=== PATIENT | female | born 1990 | race Caucasian/White ===

== ENCOUNTER 2018-04-23 13:31 | Inpatient (IN) ==
[2018-04-23] MEDS ORDERED: *HR* Nalbuphine 10 MG/ML AMPUL IVP PRN (14:17)
[2018-04-23] MEDS ORDERED: Lidocaine 1% 20 ML MDV INFILT PRN (14:17)
[2018-04-23] MEDS ORDERED: Ondansetron 4 MG/2 ML VIAL IVP PRN (14:17)
[2018-04-23] MEDS ORDERED: Metoclopramide 10 MG/2 ML VIAL IVP PRN (14:17)
[2018-04-23] MEDS ORDERED: Famotidine 20 MG/2 ML VIAL IVP PRN (14:17)
[2018-04-23] MEDS ORDERED: Naloxone 0.4 MG/ML INJ IVP PRN (14:17)
[2018-04-23] MEDS ORDERED: Ringers Solution, Lactated 1,000 ML IVC SCH (14:30)
--- NOTE | 2018-04-23 14:35 | OB/GYN History & Physical ---
Date of Encounter: 04/23/18 Time of Encounter: 14:30 Assessment and Plan (1) 40 weeks gestation of Current visit: Yes Status: Acute (2) Spontaneous onset of labor Current visit: Yes Status: Acute Admit for expectant managment. Epidural when requested. Anticipate . (3) Asthma affecting in third trimester Current visit: Yes Status: Acute (4) Depression affecting in third trimester, antepartum Current visit: Yes Status: Acute History of Present Illness Chief complaint: contractions HPI: Ms. Champion is a 27 year old female presenting at 40w3d with c/o contractions. She states the contractions started about 0330 this am and were about every 7 minutes until she was on her way to her appt today. She reports they are stronger and closer now than they have been. No other complaints. This has been uncomplicated. She is on Zoloft for depression since she was a teenager. She also has asthma for which she uses her albuterol inhaler about once per week. Blood type O positive Rubella immune Serologies negative GBS negative Past Med Surg Social Fam HX - Past Medical History Source: patient Medical history: asthma - Past Surgical History Surgical History: non-contributory - Social History Smoking Status: Never smoker Smokeless Tobacco Status: No Alcohol use: none Drug use: none Occupational status: employed Current living situation: Home - Independent, With Family Activity Level: Independent ambulation Obstetrical History - Pregnancies : 1 Para: 0 Medications and Allergies Albuterol Sulfate [Albuterol Inhaler] 1 puff IH 04/23/18 [History] Sertraline [Zoloft] 50 mg PO DAILY 04/23/18 [History] 3 Allergy/AdvReac Type Severity Reaction Status Date / Time azithromycin Allergy Hives Verified 04/23/18 14:16 Review of System OB All systems PM: reviewed and no additional remarkable complaints except as stated Exam - Constitutional Constitutional: well developed, well nourished, mild distress - HEENT HEENT: Mucus Membranes Moist - Lungs Respiratory exam: CTAB - Cardiovascular Cardiovascular exam: RRR - Abdomen Abdomen: Present: gravid, non tender - Extremities Extremities exam: normal inspection - Vulva Vulva: bilateral: normal - Cervix Dilation: 2 Effacement: 80 Station: -1 - Anus/Rectum Anus/Rectum: Present: normal perianal skin Results All other labs normal. - VTE Reasons for not Prescribing Prophylaxis: Treatment not Indicated - Low risk for VTE
[2018-04-23 15:03] LABS: Basophils % 0.3 %; Eosinophils # 0.1 K/mcL (0.0-0.6); Eosinophils % 0.9 %; Hematocrit 35.4 % (35.3-44.9); Hemoglobin 12.4 g/dL (11.5-15.4); Immature Granulocytes % 0.6 % (0-4); Lymphocytes # 2.1 K/mcL (0.6-4.6); Lymphocytes % 16.2 %; Mean Corpuscular Hemoglobin 30.4 pg (28.0-33.3); Mean Corpuscular Volume 86.8 fL (83.0-100.0); Mean Platelet Volume 11.4 fL (9.4-12.4); Monocytes # 0.6 K/mcL (0.0-1.3); Neutrophils # 9.9 K/mcL (1.6-8.9); Platelet Count 229 K/mcL (140-400); Red Blood Count 4.08 M/mcL (3.82-4.97); Red Cell Distribution Width 12.3 % (11.5-14.5)
[2018-04-23 15:13] LABS: Amphetamine Screen,Urine Negative ng/mL (Cutoff=1000); Barbiturate Screen,Urine Negative ng/mL (Cutoff=200); Benzodiazepines Screen,Urine Negative ng/mL (Cutoff=200); Cannabinoid Screen,Urine Negative ng/mL (Cutoff = 50); Cocaine Screen,Urine Negative ng/mL (Cutoff= 300); Opiate Screen,Urine Negative ng/mL (Cutoff=300); Phencyclidine Screen,Urine Negative ng/mL (Cutoff=25)
[2018-04-23] MEDS ORDERED: Oxytocin 20 units/ LR 1000 mL 20 UNIT/1,000 ML BAG IVC SCH (15:45)
--- NOTE | 2018-04-23 18:16 | OB Labor Progress Note ---
Date of Encounter: 04/23/18 Time of Encounter: 18:15 Labor Progress Note - Subjective Subjective: Pt reports pain has improved with Nubain. - Cervix Cervix: 3/90/0 - Heart Tones Heart Tones: Category II, occassional variable decelerations - [place]: 1.5-4 minutes - Interventions Interventions: AROM for small amount MSF - Plan Plan: Continue to monitor and titrate pitocin. Epidural when requested. Anticipate .
[2018-04-23] MEDS ORDERED: Bupivacaine-MPF 0.25% 10 ML VIAL EP ONE (19:12)
[2018-04-23] MEDS ORDERED: *HR* FentaNYL (PF) 100 MCG/2 ML VIAL EP ONE (19:12)
[2018-04-23] MEDS ORDERED: Bupivacaine-MPF 0.25% 10 ML VIAL ONE (19:15)
[2018-04-23] MEDS ORDERED: Epidural Premix (fent/bupiv) 110 ML EP SCH (19:15)
[2018-04-23] MEDS ORDERED: *HR* FentaNYL (PF) 100 MCG/2 ML VIAL ONE (19:15)
[2018-04-23] MEDS ORDERED: Epidural Premix (fent/bupiv) 110 ML EP ONE (19:16)
--- NOTE | 2018-04-23 20:15 | Anesthesia Evaluation PreOp ---
Date of Encounter: 04/23/18 Time of Encounter: 19:02 - Past History Planned Operation: labor epidural Cardiac History: Denies any Significant Hx Pulmonary History: Asthma (no recent attacks, well-controlled. uses inhaler prn. 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 No FHAP.) : Yes Alcohol Use: none Drug use: none Medications and Allergies Albuterol Sulfate [Albuterol Inhaler] 1 puff IH 04/23/18 [History] Sertraline [Zoloft] 50 mg PO DAILY 04/23/18 [History] 3 Allergy/AdvReac Type Severity Reaction Status Date / Time azithromycin Allergy Hives Verified 04/23/18 14:16 - Meds/Allergy Pre-op Review Medications Reviewed: Yes Allergies Reviewed: Yes Beta Blockers on Current Med List: No Anesthesia Results - Labs 04/23/18 14:44 Anesthesia Exam 137/88, 80, 18, 98%. FHTs 120s. 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
--- NOTE | 2018-04-23 20:25 | Anesthesia Procedures ---
Date of Encounter: 04/23/18 Time of Encounter: 19:22 Procedures: Anesthesia - Epidural/Spinal Patient ID/Chart reviewed: Yes Patient examined: Yes OB Eval: Gestational age: 40 OB Eval: : 1 OB Eval: Hx Para: 0 OB Eval: Dilated at (cm): 3 OB Eval: Contractions: Non-stressed pattern Consent Obtained: Yes Supplemental Oxygen: None/Room Air Site Prep: Aseptic Technique, Sterile prep and drape, Povidone-Iodine 1% Patient position: upright Local Anesthetic: Lidocaine 1% Amount of Local Anesthetic used: 5 Touhy Needle Gauge: 18 Touhy Needle Depth (cm): 8 Catheter Depth at Skin (cm): 20 Test Dose (1.5% Lido + Epi): Volume given (mls): 6 Test Dose Result: Negative Loading Dose: 0.25% Marcaine (mls): 8 Loading Dose: Fentanyl (mcg): 100 Loading Dose Administered: Thru Catheter Infusion Med: 0.125% Bupivacaine w/ 2 mcg/ml Fentanyl Infusion Rate (mls/hr): [address]: Tegaderm, Tape Interspace Used: L2-L3 Loss of Resistance (JANE): Yes Blood: No CSF: No Paresthesia: No Vitals + FHT's: 3 Vital Signs Time 1921 1952 1954 1999 2004 BP 137/88 153/74 148/96 136/75 142/87 Pulse 98 83 88 80 72 FHTs 120 120 120 120 120
[2018-04-23] MEDS ORDERED: MetroNIDAZOLE 500 MG/100 ML 500 MG/100 ML BAG IVPB ONE (21:06)
[2018-04-23] MEDS ORDERED: Lidocaine/EPI 1:200k 2% PF 20 ML VIAL ONE (21:07)
[2018-04-23] MEDS ORDERED: ceFAZolin 2,000 MG in D5% in Water 100 ML IVPB ONE (21:07)
[2018-04-23] MEDS ORDERED: *HR* Oxytocin 10 UNIT/ML VIAL IM ONE (21:13)
[2018-04-23] MEDS ORDERED: *HR* Propofol 200 MG/20 ML VIAL IVP ONE (21:15)
[2018-04-23] MEDS ORDERED: Morphine Sulfate/PF 5mg/10mL Vial ONE (21:17)
[2018-04-23] MEDS ORDERED: Ringers Solution, Lactated 1,000 ML ONE (21:20)
[2018-04-23] MEDS ORDERED: Ondansetron 4 MG/2 ML VIAL IVP ONE (21:38)
[2018-04-23] MEDS ORDERED: Acetaminophen IV 1,000 MG/100 ML INFUS..BTL IVPB ONE (21:38)
[2018-04-23] MEDS ORDERED: *HR* Promethazine 25 MG/ML VIAL IVP PRN (21:38)
[2018-04-23] MEDS ORDERED: *HR* Morphine 2 MG/ML SYRINGE IVP PRN (21:38)
--- NOTE | 2018-04-23 21:46 | OB Labor Progress Note ---
Date of Encounter: 04/23/18 Time of Encounter: 20:15 Labor Progress Note - Subjective Subjective: Pt comfortable with epidural - Vital Signs Vital Signs: VSS, BP WNL - Cervix Cervix: 6-7cm - Heart Tones Heart Tones: Prolonged deceleration noted following placement of najera catheter. Pt repositioned multiple times, pitocin off, fluid bolus started, oxygen started. Dr Delacruz called for possible delivery. Upon her arrival FHT improving. - Interventions Interventions: See above, FSE placed, scalp stim performed - Plan Plan: Continue close monitoring. Dr. Delacruz at bedside at this time. Tracing reviewed.
[2018-04-23] MEDS ORDERED: CeFAZolin Premix DUPLEX 2,000 MG/50 ML BAG IVPB ONE (22:00)
--- NOTE | 2018-04-23 22:08 | OB/GYN Procedure Note ---
Section - Date of procedure: 04/23/18 Preop diagnosis: category 3 FHT tracing, other (Thick meconium-stained amniotic fluid, 6 cm) Post-op diagnosis: same (Loose nuchal) Procedure: section (Emergent), primary low transverse Surgeon: Karen Ham Blood Loss: 200 Was there an inventory control assistant present: No Anesthesiologist: Johnan Arndt Mushroom Spawn Maker: Tere Jaramillo Anesthesia Type: Epidural section complications: none Disposition: L&D Recovery Room Specimens: Placenta, Cord segment, Cord blood - Infant (s) A Infant Delivery Date: 04/23/18 Delivery Time: 21:20 Presentation: vertex Position: EMMA Route of delivery: other Gender: Male Viability: Viable Pounds: 7 Ounces: 4 Gram Weight: 3.285 kg at 1 minute: 8 at 5 minutes: 9 Shoulder Dystocia: not encountered Specimens collected: cord blood Placenta: uterine exploration, complete extraction Cord: nuchal cord, 3 umbilical vessels, delivered through nuchal - Narrative Narrative: The patient was brought to the operating room, sign in completed. Epidural anesthesia was dosed to be adequate for surgery. The patient was then prepped and draped in the usual sterile fashion. A timeout was completed. A Pfannenstiel skin incision was then made and sharply dissected down to the fascia. The fascia was then incised in the midline and extended bluntly and sharply bilaterally. 2 straight Nathan clamps were placed on the inferior fascial edge and the fascia was bluntly and sharply dissected away from rectus muscles, this was repeated superiorly.The rectus muscles were bluntly bissected. Peritoneum was bluntly entered and extended superiorly and inferiorly. A bladder blade was placed to protect the bladder. The Vesicouterine peritoneum was incised with Metzenbaum scissors and bluntly extended bilaterally and peritoneum reflected inferiorly. The bladder blade was replaced to protect the bladder. A low transverse incision was then made in the lower uterine segment down to the amnion. This was then bluntly extended bilaterally. The amnion was then bluntly entered, clear fluid was seen , and the infant was delivered in vertex presentation. There was a a loose nuchal the the was delivered through.. The infant was vigorous and suctioned on the operating field. After delayed cord clamping, the infant was handed to the nursery care team. A cord segment and cord blood was obtained. IV Pitocin was started. The placenta was delivered manually intact. The uterine Cavity was digitally inspected and noted to be clear and then was wiped clean with a moist lap sponge. Tubes and ovaries were inspected and found to be grossly normal. Ring clamps were placed on the edge of the uterine incision, a ring forcep was used to confirm cervical dilation then discarded off the field , and the uterine incision was closed using 0 Vicryl suture in a running locking fashion. A second imbricating layer completed the uterine closure. Good hemostasis was achieved. The pelvic cavity was copiously irrigated with sterile water and good hemostasis was noted. Peritoneal edges and rectus muscles were inspected and good hemostasis was achieved. The fascia was then closed using an 0 PDS loop in a running nonlocking fashion. Subcutaneous tissue was irrigated with sterile water good hemostasis was achieved. Subcutaneous layer was closed with O-Stratafix in a running nonlocking fashion. The skin was then closed with 4-0 Monocryl in a subcuticular fashion. A Eve dressing was applied to the skin incision. Miller was noted to be draining clear yellow urine at the end of the procedure. All sponge and instrument counts were correct at the end of the procedure. The patient was taken to the recovery room in stable condition.
[2018-04-23] MEDS: *HR* HYDROmorphone (PF) 1 MG/ML SYRINGE IVP PRN ×3 (22:57→23:41)
[2018-04-24] MEDS ORDERED: Rho Immune Globulin 1,500 UNIT SYRINGE IM ONE (00:27)
[2018-04-24] MEDS ORDERED: Sennosides 8.6 MG TABLET PO PRN (00:27)
[2018-04-24] MEDS ORDERED: Oxytocin 20 units/ LR 1000 mL 20 UNIT/1,000 ML BAG IVC SCH (00:27)
[2018-04-24] MEDS ORDERED: Ondansetron 4 MG/2 ML VIAL IVP PRN (00:27)
[2018-04-24] MEDS ORDERED: Simethicone 80 MG TAB.CHEW PO PRN (00:27)
[2018-04-24] MEDS ORDERED: Metoclopramide 10 MG/2 ML VIAL IVP PRN (00:27)
[2018-04-24] MEDS: Ibuprofen 600 MG TABLET PO SCH ×2 (01:23→08:18)
[2018-04-24 04:36] LABS: Basophils % 0.2 %; Eosinophils % 0.1 %; Hematocrit 32.2 % (35.3-44.9); Immature Granulocytes % 0.6 % (0-4); Lymphocytes # 2.8 K/mcL (0.6-4.6); Lymphocytes % 15.2 %; Mean Corpuscular HGB Conc 34.2 g/dL (31.6-35.5); Mean Corpuscular Hemoglobin 30.1 pg (28.0-33.3); Mean Platelet Volume 11.5 fL (9.4-12.4); Monocytes # 1.2 K/mcL (0.0-1.3); Monocytes % 6.3 %; Neutrophils # 14.1 K/mcL (1.6-8.9); Platelet Count 213 K/mcL (140-400); Red Blood Count 3.66 M/mcL (3.82-4.97); Red Cell Distribution Width 12.1 % (11.5-14.5); Segmented Neutrophils % 77.6 %
--- NOTE | 2018-04-24 06:57 | Anesthesia Evaluation Post Op ---
Date of Encounter: 04/23/18 Time of Encounter: 10:50 - Vital Signs Vital Signs: VSS stable and WNL. - Lungs Lungs: Clear Ascult./Percussion - Airway Airway: Non-obstructed - Cardiovascular Regular Rate - Mental Status Mental Status: Alert & Oriented, Answers Appropriately - Pain Pain Scale: 3 Pain Scale used: Numeric (1 - 10) - Nausea Vomiting Nausea Vomiting: Not Present - Hydration Hydration: NPO, Miller catheter - Discharge PostOp Status: Transfer Patient to floor
[2018-04-24] MEDS: cephALEXin 500 MG CAPSULE PO SCH ×3 (08:18→19:52)
[2018-04-24] MEDS: Prenatal Vit/FA 1 EACH TABLET PO SCH (08:18)
--- NOTE | 2018-04-24 11:08 | OB/GYN Progress Note ---
Date of Encounter: 04/24/18 Time of Encounter: 11:05 - Assessment and Plan (1) delivery delivered Current Visit: Yes Status: Acute PCS PP day #1 Continue routine PP care consult prn Anticipate discharge tomorrw Subjective - Subjective Interval history: Doing well. States breasts are full and she is pumping due to baby not latching well. [employer] consultant was in to assist with latch. Tolerating regualr diet. Ambulating without difficulty. Lochia light and without clots. Dressing reamains on with two small areas of drainage marked, no new drainage. Miller catheter to BSD with taiwo colored urine in bag, encouraged po fluids. States pain has been mild and is well controlled with Ibuprofen. holding at bedside. Patient reports: appetite normal, pain well controlled, ambulating normally [place]: doing well, nursing well Objective - Vital Signs Latest vital signs: Vital Signs Temp Pulse Resp BP Pulse Ox 04/24/18 08:02 99.3 F 95 16 100/64 98 04/24/18 03:30 98.8 F 88 16 99/65 98 04/24/18 02:30 99.0 F 89 16 115/74 97 04/24/18 01:31 98.4 F 90 16 116/72 97 04/24/18 01:00 98.4 F 89 16 119/75 97 04/24/18 00:30 98.4 F 90 16 113/75 97 Intake and Output 04/23/18 04/24/18 04/24/18 23:59 07:59 15:59 Intake Total 1000 / 1000 Output Total 550 / 550 Balance 450 / 450 Intake: Oral 1000 / 1000 Output: Catheter 550 / 550 Other: Stool Characteristics Normal for Patient Weight 108.5 kg Patient Weight 04/24/18 23:59 Weight 108.5 kg - Exam Lungs: bilateral: normal Chest: Normal S1, Normal S2 Extremities: Present: normal Abdomen: Present: normal appearance, soft Incision: Present: dry, dressed Uterus: Present: firm - Labs Labs: Laboratory Results - last 24 hr 04/23/18 04/23/18 04/24/18 14:44 14:44 04:04 WBC 12.9 H 18.2 H RBC 4.08 3.66 L Hgb 12.4 11.0 L Hct 35.4 32.2 L MCV 86.8 88.0 MCH 30.4 30.1 MCHC 35.0 34.2 RDW 12.3 12.1 Plt Count 229 213 MPV 11.4 11.5 Immature Gran % 0.6 0.6 Seg Neutrophils % 77.0 77.6 Lymphocytes % 16.2 15.2 Monocytes % 5.0 6.3 Eosinophils % 0.9 0.1 Basophils % 0.3 0.2 Neutrophils # 9.9 H 14.1 H Lymphocytes # 2.1 2.8 Monocytes # 0.6 1.2 Eosinophils # 0.1 0.0 Basophils # 0.0 0.0 Urine Opiates Screen Negative Ur Barbiturates Screen Negative Ur Phencyclidine Scrn Negative Ur Amphetamines Screen Negative U Benzodiazepines Scrn Negative Urine Cocaine Screen Negative U Marijuana (THC) Screen Negative
--- NOTE | 2018-04-24 12:31 | Event Note ---
Date of Encounter: 04/23/18 Time of Encounter: 22:30 Called the patient's room for recurrent decelerations with known thick meconium-stained amniotic fluid. Cervix unchanged. Patient had episode of deceleration post-epidural placement with rapid change of of her cervix which spontaneously resolved. Slow resolution of decelerations noted. Patient gave informed consent to proceed with a primary section.
[2018-04-24] MEDS: *HR* OxyCODONE/APAP 5/325 TABLET PO PRN ×2 (14:34→19:52)
[2018-04-25] MEDS: Ibuprofen 600 MG TABLET PO SCH ×3 (00:12→11:51)
[2018-04-25] MEDS: *HR* OxyCODONE/APAP 5/325 TABLET PO PRN ×2 (05:09→11:16)
[2018-04-25 07:48] VITALS: BP 109/72
[2018-04-25] MEDS: Prenatal Vit/FA 1 EACH TABLET PO SCH (08:14)
[2018-04-25] MEDS: cephALEXin 500 MG CAPSULE PO SCH (08:15)
--- NOTE | 2018-04-25 10:28 | Discharge Summary ---
Date of Encounter: 04/25/18 Time of Encounter: 10:26 - Discharge Diagnosis (1) Breast feeding status of mother Priority: Secondary Status: Acute Comments: Follow-up with outpatient as needed (2) delivery delivered Priority: Primary Status: Acute Comments: Reports pain well controlled with by mouth pain meds Tolerating regular diet Vital signs stable Voiding independently Passing flatus, but no BM yet Ambulating independently Lochia light Discharge home today - Discharge Medications Prescriptions: OxyCODONE/APAP 5/325 [Percocet 5/325 MG] 1 each PO Q4HR PRN 5 Days #30 tablet PRN Reason: Moderate pain 4-6 Ibuprofen [Motrin] 600 mg PO Q6HR #30 tablet Clindamycin [Cleocin] 300 mg PO Q8HR #21 capsule cephALEXin [Keflex] 500 mg PO QID #28 capsule Docusate [Colace] 100 mg PO BID #30 capsule Home Medications: Albuterol Sulfate [Albuterol Inhaler] 1 puff IH 04/23/18 [History] Sertraline [Zoloft] 50 mg PO DAILY 04/23/18 [History] Clindamycin [Cleocin] 300 mg PO Q8HR #21 capsule 04/25/18 [Rx] Docusate [Colace] 100 mg PO BID #30 capsule 04/25/18 [Rx] Ibuprofen [Motrin] 600 mg PO Q6HR #30 tablet 04/25/18 [Rx] OxyCODONE/APAP 5/325 [Percocet 5/325 MG] 1 each PO Q4HR PRN 5 Days #30 tablet [Rx] Vit/FA 1 each PO DAILY tablet 04/25/18 [Rx] Simethicone [Gas-X] 80 mg PO TID PRN tab.chew 04/25/18 [Rx] cephALEXin [Keflex] 500 mg PO QID #28 capsule 04/25/18 [Rx] Allergies/Adverse Reactions: 3 Allergy/AdvReac Type Severity Reaction Status Date / Time azithromycin Allergy Hives Verified 04/23/18 14:16 Data Procedures and tests throughout hospitalization: Laboratory Tests 04/23/18 04/23/18 04/24/18 14:44 14:44 04:04 WBC 12.9 H 18.2 H RBC 4.08 3.66 L Hgb 12.4 11.0 L Hct 35.4 32.2 L MCV 86.8 88.0 MCH 30.4 30.1 MCHC 35.0 34.2 RDW 12.3 12.1 Plt Count 229 213 MPV 11.4 11.5 Immature Gran % 0.6 0.6 Seg Neutrophils % 77.0 77.6 Lymphocytes % 16.2 15.2 Monocytes % 5.0 6.3 Eosinophils % 0.9 0.1 Basophils % 0.3 0.2 Neutrophils # 9.9 H 14.1 H Lymphocytes # 2.1 2.8 Monocytes # 0.6 1.2 Eosinophils # 0.1 0.0 Basophils # 0.0 0.0 Urine Opiates Screen Negative Ur Barbiturates Screen Negative Ur Phencyclidine Scrn Negative Ur Amphetamines Screen Negative U Benzodiazepines Scrn Negative Urine Cocaine Screen Negative U Marijuana (THC) Screen Negative Date of admission: 04/23/18 13:31 Primary care physician: Yazmin Jenkins Discharging clinician: Bette López Anticipated date of discharge: 04/25/18 - Patient Status Disposition: Home, Self-Care Condition: Good Functional capacity at discharge: independent ambulation Overall status at discharge: patient is progressing back to baseline - Discharge Instructions Follow Up With: Gregory-Yazmin Sin DO [Primary Care Provider] - Laney Nava MD [Partnered Physician] - - Diet and Activity Activity: increase activity as tolerated Diet: regular diet Hospital Course Reason for admission: IUP at term Delivery: section Episiotomy: none Laceration: none Other procedures: none complications: none Discharge diagnosis: IUP at term delivered [place] baby: male Time Attestation: Total time spent providing and/or coordinating discharge services: Time Spent: Less than 30 minutes - VTE Reasons for not Prescribing Prophylaxis: Treatment not Indicated - Low risk for VTE Documentation of Mechanical Device: Intermittent pneumatic compression device Exam - Constitutional Vitals: Temp Pulse Resp BP Pulse Ox 98.3 F 86 16 109/72 97 04/25/18 07:47 04/25/18 07:47 04/25/18 07:47 04/25/18 07:47 04/24/18 21:00 General appearance IM: A&O X 3 - Respiratory Respiratory exam: Present: CTAB - Cardiovascular Cardiovascular exam IM: Present: RRR, +S1, +S2 - GI/Abdominal GI/Abdominal exam IM: normal bowel sounds, no peritoneal signs Incision: normal, dry, dressed - Rectal Rectal exam: deferred - Uterine Tone: Firm Uterus Position: 1 Finger Below Umbilicus, Midline - Extremities Exam Extremities exam IM: Present: normal capillary refill, normal inspection, radial pulses palpable and symmetrical - Neurological Exam Neurological exam: alert, oriented X3 - Psychiatric Additional comments: Patient reports a history of anxiety and depression. Signs and symptoms of depression discussed and patient verbalized understanding of when to call for help.
== END 2018-04-25 13:50 | disposition home or self-care (01) | DRG 765 ==
LOC: 1NENULAB → OBSVTOIN 13:31 → 1NENUOBS 04-24 00:51
PROVIDERS: ADMIT Obstetrics & Gynecology; ATTEND Obstetrics & Gynecology